=== PATIENT | female | born 1975 | race Caucasian/White ===

== ENCOUNTER 2016-03-22 10:38 | Inpatient (IN) | payer MEDICAID, OTHER ==
[2016-03-22] VITALS (14 sets, daily range): BP systolic 74–123; RESP 7–22; TEMP 97.5–97.7; Ht 171.4 cm; Wt 91.6 kg
[~2016-03-22] VITALS: Ht 171.4 cm; Wt 91.6 kg
[~2016-03-22 10:38] MED LIST: DIPHENHYDRAMINE 50 MG/ML VIAL IV ONE; LIDOCAINE 1% BUFFERED 1 ML SYR INTRADERM PRN; PHENYLEPHRINE 10 MG/ML VIAL IV ONE
[2016-03-22] MEDS ORDERED: FAMOTIDINE 20 MG INJ IV ONE (11:10)
[2016-03-22] MEDS ORDERED: METOCLOPRAMIDE 10 MG/2 ML VIAL IV PUSH ONE (11:10)
[2016-03-22] MEDS ORDERED: CEFAZOLIN (LD/OB) 100 ML IV ONE (11:10)
[2016-03-22] MEDS: LACT RINGERS 1,000 ML IV SCH ×3 (11:11→13:30)
[2016-03-22] MEDS ORDERED: Flu Vaccine Quadrivalent 60 MCG/0.5 ML IM.VACC ONE (11:15)
[2016-03-22] MEDS ORDERED: NALOXONE 0.4 MG/ML AMP IV PRN (11:45)
[2016-03-22] MEDS ORDERED: BUTORPHANOL 1 MG/ML VIAL IV PRN (11:45)
[2016-03-22] MEDS ORDERED: ONDANSETRON 4 MG VIAL IV PRN ×3 (11:45→13:25)
[2016-03-22] MEDS ORDERED: DIPHENHYDRAMINE 50 MG/ML VIAL IV PRN (11:45)
[2016-03-22] MEDS ORDERED: MEPERIDINE 25 MG/ML IV PRN (11:45)
[2016-03-22] MEDS ORDERED: SALINE FLUSH 10 ML FLUSH PRN (11:45)
[2016-03-22] MEDS ORDERED: PROMETHAZINE 25 MG/ML VIAL IV PRN (11:45)
[2016-03-22] MEDS ORDERED: OXYCODONE 5 MG TAB PO PRN (11:45)
[2016-03-22] MEDS ORDERED: DILAUDID 1 MG/ML AMP IV PRN (11:45)
[2016-03-22] MEDS ORDERED: MORPHINE 4 MG/ML SYR IV PRN ×2 (11:45)
[2016-03-22] MEDS ORDERED: MORPHINE 2 MG/ML SYR IV PRN ×2 (11:45)
[2016-03-22] MEDS ORDERED: TDaP 0.5 ML VIAL IM.VACC ONE (13:25)
[2016-03-22] MEDS ORDERED: OXYTOCIN 15 UNITS/250 ML NS 250 ML IV SCH (13:25)
[2016-03-22] MEDS ORDERED: MEASLES,MUMPS,RUBELLA VAC SUBQ.VACC ONE (13:25)
[2016-03-22] MEDS ORDERED: LACT RINGERS 1,000 ML IV SCH (13:25)
[2016-03-22] MEDS ORDERED: MAG HYDROX 30 ML UDC PO PRN (13:25)
[2016-03-22] MEDS: MISOPROSTOL 200 MCG TAB PO SCH ×2 (13:50→17:00)
[2016-03-22] MEDS: KETOROLAC 30 MG/ML VIAL IV SCH ×3 (13:52→23:34)
[2016-03-22] MEDS: SALINE FLUSH 10 ML FLUSH SCH (20:00)
[2016-03-23 01:45] VITALS: BP_SYST 100; RESP 16; TEMP 98.3
[2016-03-23] MEDS: KETOROLAC 30 MG/ML VIAL IV SCH (05:11)
[2016-03-23 05:17] VITALS: BP_SYST 109; RESP 16; TEMP 98.2
[2016-03-23] MEDS ORDERED: SODIUM CHLORIDE 0.9% FLUSH BAG 500 ML IV SCH (06:00)
[2016-03-23] MEDS: SALINE FLUSH 10 ML FLUSH SCH (08:00)
[2016-03-23 09:25] VITALS: BP_SYST 111; TEMP 97.8
[2016-03-23 09:26] VITALS: RESP 16
[2016-03-23] MEDS: DOCUSATE SOD 100 MG CAP PO SCH (09:28)
[2016-03-23] MEDS: Ibuprofen 600 MG TAB PO SCH ×3 (13:15→23:17)
[2016-03-23 17:40] VITALS: BP_SYST 113; TEMP 97.9
[2016-03-23 17:41] VITALS: RESP 16
[2016-03-24] MEDS: Ibuprofen 600 MG TAB PO SCH ×2 (05:05→11:17)
[2016-03-24 06:14] VITALS: BP_SYST 134; RESP 18; TEMP 98.1
[2016-03-24] MEDS: DOCUSATE SOD 100 MG CAP PO SCH (08:27)
[2016-03-24 09:05] VITALS: BP_SYST 120; RESP 24; TEMP 98.5
[2016-03-24 09:21] VITALS: BP_SYST 120; RESP 16; TEMP 98
[2016-03-24] MEDS ORDERED: MISSING DOSE XX ONE (10:35)
[2016-03-24 10:45] VITALS: BP_SYST 120; RESP 16; TEMP 98
[2016-03-24] MEDS ORDERED: TDaP 0.5 ML VIAL IM.VACC ONE (11:15)
== END 2016-03-24 13:04 | disposition home or self-care (01) | DRG 766 ==
LOC: LD 10:38 → OB 15:15
PROVIDERS: ADMIT Obstetrics & Gynecology Reproductive Endocrinology; ATTEND Obstetrics & Gynecology Reproductive Endocrinology
PROC: 10D00Z1 Extraction of Products of Conception, Low, Open Approach (ICD-10-PCS; principal; 2016-03-22)
PROC: 0UT60ZZ Resection of Left Fallopian Tube, Open Approach (ICD-10-PCS; 2016-03-22)
PROC: 0UT50ZZ Resection of Right Fallopian Tube, Open Approach (ICD-10-PCS; 2016-03-22)
PROC: 0UT00ZZ Resection of Right Ovary, Open Approach (ICD-10-PCS; 2016-03-22)
DX: O34.219 Maternal care for unspecified type scar from previous cesarean delivery (principal); Z37.0 Single live birth; Z3A.39 39 weeks gestation of pregnancy; N83.201 Unspecified ovarian cyst, right side
CPT/HCPCS: 82803; 85025; 88305; 90471; 96372